=== PATIENT | male | born 1985 | race African-American/Black ===

== ENCOUNTER 2019-02-15 16:08 | Inpatient (IN) | payer OTHER ==
[2019-02-15 16:31] VITALS: BMI 23.9
--- NOTE | 2019-02-15 17:14 | HP ---
CIWA Score Nausea/Vomitin-Mild Nausea/No Vomiting (Patient is HIV+) Muscle Tremors: 4-Moderate,w/Arms Extend Anxiety: 3 Agitation: 0-Normal Activity Paroxysmal Sweats: 3 (Increased facial moisture) Orientation: 1-Uncertain about Date Tacttile Disturbances: 1-Very Mild Itch/Numbness Auditory Disturbances: 0-None Visual Disturbances: 0-None Headache: 3-Moderate CIWA-Ar Total Score: 16 - Admission Criteria OASAS Guidelines: Admission for Medically Managed Detox: Requires at least one of the followin. CIWA greater than 12 2. Seizures within the past 24 hours 3. Delirium tremens within the past 24 hours 4. Hallucinations within the past 24 hours 5. Acute intervention needed for co occurring medical disorder 6. Acute intervention needed for co occurring psychiatric disorder 7. Severe withdrawal that cannot be handled at a lower level of care (continued vomiting, continued diarrhea, abnormal vital signs) requiring intravenous medication and/or fluids 8. Patient presents the following: CIWA greater than 12 Admission Criteria Met: Admission criteria met Admission ROS [facility] Chief Complaint: Here today "to get detoxed and get into a rehab program". Allergies/Adverse Reactions: Allergies Allergy/AdvReac Type Severity Reaction Status Date / Time No Known Allergies Allergy Verified 02/15/19 16:22 History of Present Illness: 33 yo presents seeking alcohol detox exhibiting withdrawal symptoms. States cut wrist but was not trying to kill self and then decided to go to [facility]. Patient paperwork indicates admitted to [facility] from -. Patient states was admitted w/ diagnosis of drug-induced psychosis. Called [facility] ([phone]) who verified that a prescription is for [place] 150 mg - 3 cap (450 mg) PO BID. Spoke w/ CPAP unit at [facility] ([phone]) who confirms that patient is on [place] 450 mg Po BID; Informed that patient received Invega-Sustena 117 mg IM on 02/14 and next dose is in 1 month. F/u appt @ [facility] on 03/12/19. States started back drinking as soon as discharged. Denies thoughts of harming self or others. Denies seizures, blackouts, or overdoses. Longest sobriety 3 months in 2014. (Was exercising and eating right) Alcohol use began at age 17. Currently drinking 1 pint every other day. Drinks 2 - 16 oz beers daily. States gets shakes when stops drinking. Heroin use intermittent since age 33. States has only used 1-2 x in lifetime. States last used 2 sniffs heroin yesterday. Cocaine use began at age 23. Current use $20/day - nasal. Past use crystal meth began at age 32. Last used 1 month ago. Nicotine use began at age 17. Currently smokes almost 1 PPD. PMHx: HIV+ (Non-compliant w/ meds for over 1 month) PMHx: Insomnia. Recent drug-induced psychosis. Denies thoughts of harming self or others. Hx hallucination (seeing spots) r/t withdrawal. SHx: Homeless. Unemployed. Denies legal issues. Search Terms: Hernesto Garcia, 1985 Search Date: 02/15/2019 05:12:49 PM The Drug Utilization Report below displays all of the controlled substance prescriptions, if any, that your patient has filled in the last twelve months. The information displayed on this report is compiled from pharmacy submissions to the Department, and accurately reflects the information as submitted by the pharmacies. This report was requested by: Aileen Quintana | Reference #: [id number] There are no results for the search terms that you entered. Exam Limitations: No Limitations - Ebola screening Have you traveled outside of the country in the last 21 days: No (N) Have you had contact with anyone from an Ebola affected area: No Have you been sick,other than usual withdrawal symptoms: No Do you have a fever: No - Review of Systems Constitutional: Chills, Changes in sleep (Difficulty falling and staying asleep - take), Weight Stable EENT: reports: Blurred Vision Respiratory: reports: No Symptoms reported Cardiac: reports: Chest Tightness (Tightness w/ burning sensation unrelated to acitivity. Denies radiation. Denies cardiac history.) GI: reports: Constipated (Occ constipation. Last BM today), Nausea, Indigestion (Heart burn mid-sternal area - used to take pepcid.), Other (Gassy) : reports: No Symptoms Reported Musculoskeletal: reports: Back Pain (Intermittent back pain r/t poor sleeping conditions.) Integumentary: reports: No Symptoms Reported Neuro: reports: Headache (Frontal/temporal throbbing headache. "6"), Tremors Endocrine: reports: Increased Thirst Hematology: reports: Anemia (HIV+) Psychiatric: reports: Orientated x3 (Missed date by 2 days), Anxious, Depressed Patient History - PPD History Previous Implant?: Yes Documented Results: Negative w/o proof Implanted On Prior [facility] Admission?: No PPD to be Administered?: Yes - Smoking Cessation Smoking history: Current every day smoker Have you smoked in the past 12 months: Yes Aproximately how many cigarettes per day: 15 Hx Chewing Tobacco Use: No Initiated information on smoking cessation: Yes 'Breaking Loose' booklet given: 02/15/19 - Substance & Tx. History Hx Alcohol Use: Yes Hx Substance Use: Yes Substance Use Type: Alcohol, Cocaine, Heroin Hx Substance Use Treatment: Yes (detox, rehab) - Substances abused Cocaine Substance route: Inhalation Frequency: Daily Amount used: $20 Age of first use: 23 Date of last use: 02/14/19 Alcohol Substance route: Oral Frequency: Daily Amount used: vodka- 1pt pint Age of first use: 17 Date of last use: 02/15/19 Admission Physical Exam BHS - Vital Signs Vital Signs: Vital Signs - 24 hr 02/15/19 16:16 Temperature 98.9 F Pulse Rate 91 H Respiratory 18 Rate Blood Pressure 136/70 - Physical General Appearance: Yes: Nourished, Mild Distress, Tremorous, Sweating ( Increased facial moisture), Anxious HEENTM: Yes: EOMI, Hearing grossly Normal, Normocephalic, Normal Voice, ISATU ( Pupils = 5 mm), Pharynx Normal Respiratory: Yes: Lungs Clear (Pulse Ox = 98 %), Normal Breath Sounds, No Respiratory Distress Neck: Yes: No masses,lesions,Nodules, Supple Breast: Yes: Breast Exam Deferred Cardiology: Yes: Regular Rhythm, Regular Rate, S1, S2 Abdominal: Yes: Non Tender, Flat, Soft, Increased Bowel Sounds Genitourinary: Yes: Within Normal Limits Back: Yes: Normal Inspection Musculoskeletal: Yes: full range of Motion, Gait Steady Extremities: Yes: Normal Capillary Refill, Tremors (Gross tremors at rest), Other (Peripheral pulses+. No edema.) Neurological: Yes: radio television announcer II-XII NML intact, Alert, Motor Strength 5/5, Depressed Affect (Flat affect. Responds to questions in a slow monotone voice w/ minimal facial expression) Integumentary: Yes: Normal Color, Warm, Moist (Increased facial moisture), Other (Sutures (R) wrist area - dry and approximated.) Lymphatic: Yes: Within Normal Limits - Diagnostic (1) Alcohol dependence with withdrawal, uncomplicated Current Visit: Yes Status: Acute (2) Cocaine dependence, uncomplicated Current Visit: Yes Status: Chronic (3) Opioid abuse Current Visit: Yes Status: Chronic (4) HIV (human immunodeficiency virus infection) Current Visit: Yes Status: Chronic Qualifiers: HIV symptom status: unspecified Qualified Code(s): B20 - Human immunodeficiency virus [HIV] disease (5) Insomnia Current Visit: Yes Status: Acute Qualifiers: Insomnia type: unspecified Qualified Code(s): G47.00 - Insomnia, unspecified (6) Flat affect Current Visit: Yes Status: Acute (7) Nicotine dependence, unspecified, uncomplicated Current Visit: Yes Status: Chronic Qualifiers: Nicotine product type: cigarettes Qualified Code(s): F17.210 - Nicotine dependence, cigarettes, uncomplicated Cleared for Admission S - Detox or Rehab [facility] Level of Care: Medically Managed Detox Regimen/Protocol: Librium Claeared for Rehab Admission: No Breathalyzer - Breathalyzer Breathalyzer: 0 Urine Drug Screen - Test Device Lot number: [id number] Expiration date: 09/18/20 - Control Is test valid?: Yes - Results Drug screen NEGATIVE: No Urine drug screen results: JAHAIRA-Cocaine, MOP-Opiates, BZO-Benzodiazepines Inpatient Rehab Admission - Rehab Decision to Admit Inpatient rehab admission?: No
[2019-02-15] MEDS ORDERED: MAG HYDROX/AL HYDROX/SIMETH 30 ML UNIT-DOSE CUP PO PRN (18:09)
[2019-02-15] MEDS ORDERED: ACETAMINOPHEN 325 MG TABLET (FP) PO PRN (18:09)
[2019-02-15] MEDS ORDERED: chlordiazePOXIDE HCL 25 MG CAPSULE PO ONE (18:09)
[2019-02-15] MEDS ORDERED: MAGNESIUM CITRATE 300 ML BOTTLE PO PRN (18:09)
[2019-02-15] MEDS ORDERED: BISMUTH SUBSALICYLATE 524 MG/30 ML UD PO PRN (18:09)
[2019-02-15] MEDS ORDERED: IBUPROFEN 400 MG TABLET (FP) PO PRN (18:09)
[2019-02-15] MEDS ORDERED: MENTHOL/PHENOL 1 EACH UD MM PRN (18:09)
[2019-02-15] MEDS ORDERED: chlordiazePOXIDE HCL 25 MG CAPSULE PO SCH (21:00)
[2019-02-15] MEDS: chlordiazePOXIDE 5 MG CAPSULE PO SCH (22:58)
[2019-02-15] MEDS: THIAMINE HCL 100 MG TABLET (FP) PO SCH (22:58)
[2019-02-16] MEDS: chlordiazePOXIDE 5 MG CAPSULE PO SCH ×3 (06:06→22:20)
[2019-02-16 09:22] LABS: HEMOGLOBIN 12.8 GM/dL (11.7-16.9); MCH 30.9 pg (25.7-33.7); MCHC 32.9 g/dl (32.0-35.9); MEAN CELL VOLUME 94.1 fl (80-96); PLATELET COUNT 400 K/MM3 (134-434); RBC 4.14 M/mm3 (4.00-5.60); RDW 14.5 % (11.9-15.9); WHITE BLOOD COUNT 8.2 K/mm3 (4.0-10.0)
[2019-02-16 09:33] LABS: ALBUMIN 3.6 g/dl (3.4-5.0); BILIRUBIN,TOTAL 0.4 mg/dL (0.2-1); BLOOD UREA NITROGEN 10.3 mg/dL (7-18); CALCIUM 9.1 mg/dL (8.5-10.1); CREATININE 0.8 mg/dL (0.55-1.3); TOT PROT 7.4 g/dl (6.4-8.2)
[2019-02-16] MEDS: NICOTINE 21 MG/24 HOURS TOPICAL PATCH TD SCH (10:20)
[2019-02-16] MEDS: PRENATAL VITAMINS W/ FOLIC ACID TABLET (FP) PO SCH (10:20)
[2019-02-16] MEDS: METHOCARBAMOL 500 MG TABLET PO PRN ×2 (10:21→17:04)
--- NOTE | 2019-02-16 15:01 | PN ---
[facility] CIWA - CIWA Score Nausea/Vomitin-Mild Nausea/No Vomiting Muscle Tremors: 3 Anxiety: 4-Mod. Anxious/Guarded Agitation: 3 Paroxysmal Sweats: 3 Orientation: 0-Oriented Tacttile Disturbances: 0-None Auditory Disturbances: 0-None Visual Disturbances: 0-None Headache: 0-None Present CIWA-Ar Total Score: 14 S Progress Note (SOAP) Subjective: Patient asleep but easily aroused, refused to speak with display card writer Objective: 02/16/19 14:58 Last Vital Signs Temp Pulse Resp BP Pulse Ox 98.3 F 65 18 139/88 02/16/19 13:37 02/16/19 13:37 02/16/19 13:37 02/16/19 13:37 Elevated b/p noted: denies htn, not on medication Laboratory Tests 02/16/19 02/16/19 02/16/19 07:20 07:20 07:20 WBC 8.2 RBC 4.14 Hgb 12.8 Hct 39.0 MCV 94.1 MCH 30.9 MCHC 32.9 RDW 14.5 Plt Count 400 MPV 7.0 L Sodium 138 Potassium 4.0 Chloride 103 Carbon Dioxide 30 Anion Gap 5 L BUN 10.3 Creatinine 0.8 Est GFR (CKD-EPI)AfAm 136.99 Est GFR (CKD-EPI)NonAf 118.20 Random Glucose 106 Calcium 9.1 Total Bilirubin 0.4 AST 46 H ALT 56 Alkaline Phosphatase 65 Total Protein 7.4 Albumin 3.6 RPR Titer Nonreactive Labs reviewed: AST 46 (elevated) Assessment: 02/16/19 15:00 Withdrawal sxs Noted with elevated b/p and mild transaminitis Plan: Continue detox Encouraged PO water intake Elevated b/p: denies htn, not on medication, started on clonidine prn Mild transaminitis: most likely due to chronic alcoholism, monitor AST periodically, follow up with PCP for monitoring
--- NOTE | 2019-02-16 15:14 | EKG ---
Test Reason : Blood Pressure : / mmHG Vent. Rate : 088 BPM Atrial Rate : 088 BPM P-R Int : 142 ms QRS Dur : 084 ms QT Int : 374 ms P-R-T Axes : 039 068 054 degrees QTc Int : 452 ms NORMAL SINUS RHYTHM NORMAL ECG NO PREVIOUS ECGS AVAILABLE Confirmed by MD ALIVIA, NKECHI ([id number]) on 02/16/2019 3:14:17 PM Referred By: JOSE ANDRADE Confirmed By:NKECHI BNUCH MD
[2019-02-16] MEDS: NICOTINE POLACRILEX 2 MG GUM BUC PRN (18:41)
[2019-02-16] MEDS: chlordiazePOXIDE HCL 10 MG CAPSULE PO PRN (20:07)
[2019-02-16] MEDS: cloNIDine HCL 0.1 MG TABLET PO PRN (20:07)
[2019-02-16] MEDS: MELATONIN 5 MG TABLETS PO PRN (22:20)
[2019-02-16] MEDS: PANTOPRAZOLE 20 MG TABLET (FP) PO SCH (22:20)
[2019-02-16] MEDS: THIAMINE HCL 100 MG TABLET (FP) PO SCH (22:20)
[2019-02-17] MEDS: chlordiazePOXIDE HCL 10 MG CAPSULE PO SCH ×3 (05:55→21:57)
[2019-02-17] MEDS: NICOTINE 21 MG/24 HOURS TOPICAL PATCH TD SCH (10:05)
[2019-02-17] MEDS: PANTOPRAZOLE 20 MG TABLET (FP) PO SCH ×2 (10:05→22:07)
[2019-02-17] MEDS: PRENATAL VITAMINS W/ FOLIC ACID TABLET (FP) PO SCH (10:05)
[2019-02-17] MEDS: chlordiazePOXIDE HCL 10 MG CAPSULE PO PRN (10:06)
[2019-02-17] MEDS: ACETAMINOPHEN 325 MG TABLET (FP) PO PRN ×2 (10:08→16:29)
--- NOTE | 2019-02-17 10:47 | PN ---
S CIWA - CIWA Score Nausea/Vomitin-No Nausea/No Vomiting Muscle Tremors: 3 Anxiety: 2 Agitation: 2 Paroxysmal Sweats: 2 Orientation: 0-Oriented Tacttile Disturbances: 0-None Auditory Disturbances: 0-None Visual Disturbances: 0-None Headache: 0-None Present CIWA-Ar Total Score: 9 BHS Progress Note (SOAP) Subjective: sweats mild shakes anxiety body aches My sutures need to be removed Objective: 02/17/19 10:45 Vital Signs Temperature 98.8 F 02/17/19 09:11 Pulse Rate 89 02/17/19 09:11 Respiratory Rate 18 02/17/19 09:11 Blood Pressure 130/76 02/17/19 09:11 O2 Sat by Pulse Oximetry (%) Laboratory Tests 02/16/19 02/16/19 02/16/19 07:20 07:20 07:20 WBC 8.2 RBC 4.14 Hgb 12.8 Hct 39.0 MCV 94.1 MCH 30.9 MCHC 32.9 RDW 14.5 Plt Count 400 MPV 7.0 L Sodium 138 Potassium 4.0 Chloride 103 Carbon Dioxide 30 Anion Gap 5 L BUN 10.3 Creatinine 0.8 Est GFR (CKD-EPI)AfAm 136.99 Est GFR (CKD-EPI)NonAf 118.20 Random Glucose 106 Calcium 9.1 Total Bilirubin 0.4 AST 46 H ALT 56 Alkaline Phosphatase 65 Total Protein 7.4 Albumin 3.6 RPR Titer Nonreactive aaox3 ambulating no acute distress Assessment: 02/17/19 10:45 withdrawals sutures noted to right wrist. wound has healed and its scabbed. clear sutures moved and rest will dissolve. pt in agreement. vitamin A&D oint ordered Plan: continue detox vitamin a&d ointment increase fluids
[2019-02-17] MEDS: VITAMINS A AND D TOPICAL OINTMENT 60 GM TUBE TP SCH ×3 (12:09→23:25)
[2019-02-17] MEDS: NICOTINE POLACRILEX 2 MG GUM BUC PRN ×4 (12:09→21:21)
[2019-02-17] MEDS: MAGNESIUM HYDROX 2400MG/30ML ORAL SUSPENSION 30 ML CUP PO PRN ×2 (14:23→22:08)
[2019-02-17] MEDS: METHOCARBAMOL 500 MG TABLET PO PRN (16:30)
[2019-02-17] MEDS: cloNIDine HCL 0.1 MG TABLET PO PRN (18:09)
[2019-02-17] MEDS: MELATONIN 5 MG TABLETS PO PRN (22:07)
[2019-02-17] MEDS: THIAMINE HCL 100 MG TABLET (FP) PO SCH (22:07)
[2019-02-18] MEDS ORDERED: chlordiazePOXIDE 5 MG CAPSULE PO PRN
[2019-02-18] MEDS: chlordiazePOXIDE 5 MG CAPSULE PO SCH ×3 (05:55→22:02)
[2019-02-18] MEDS: VITAMINS A AND D TOPICAL OINTMENT 60 GM TUBE TP SCH ×3 (05:55→22:41)
[2019-02-18] MEDS: ACETAMINOPHEN 325 MG TABLET (FP) PO PRN ×2 (07:48→22:03)
[2019-02-18] MEDS: NICOTINE POLACRILEX 2 MG GUM BUC PRN ×2 (07:51→10:04)
--- NOTE | 2019-02-18 09:45 | PN ---
S CIWA - CIWA Score Nausea/Vomitin-No Nausea/No Vomiting Muscle Tremors: 2 Anxiety: 2 Agitation: 2 Paroxysmal Sweats: 2 Orientation: 0-Oriented Tacttile Disturbances: 0-None Auditory Disturbances: 0-None Visual Disturbances: 0-None Headache: 0-None Present CIWA-Ar Total Score: 8 BHS Progress Note (SOAP) Subjective: anxiety feeling better Objective: 02/18/19 09:46 Vital Signs Temperature 97.9 F 02/18/19 09:19 Pulse Rate 91 H 02/18/19 09:19 Respiratory Rate 16 02/18/19 09:19 Blood Pressure 128/86 02/18/19 09:19 O2 Sat by Pulse Oximetry (%) aaox3 ambulating no acute distress Assessment: 02/18/19 09:46 mild withdrawals Plan: d/c in am
[2019-02-18] MEDS: NICOTINE 21 MG/24 HOURS TOPICAL PATCH TD SCH (10:02)
[2019-02-18] MEDS: PRENATAL VITAMINS W/ FOLIC ACID TABLET (FP) PO SCH (10:02)
[2019-02-18] MEDS: PANTOPRAZOLE 20 MG TABLET (FP) PO SCH ×2 (10:04→22:02)
[2019-02-18] MEDS: MAGNESIUM HYDROX 2400MG/30ML ORAL SUSPENSION 30 ML CUP PO PRN (10:04)
[2019-02-18] MEDS: BACITRACIN 15 GM TUBE TOPICAL OINTMENT TP SCH (11:52)
[2019-02-18] MEDS: METHOCARBAMOL 500 MG TABLET PO PRN (12:43)
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
[2019-02-18] MEDS ORDERED: hydrOXYzine PAMOATE 50 MG CAPSULE (FP) PO PRN (13:35)
[2019-02-18] MEDS: risperiDONE 1 MG TABLET (FP) PO SCH ×2 (14:28→22:01)
[2019-02-18 14:37] LABS: PH,URINE 6.5 (5.0-8.0); URINE APPEARANCE CLEAR; URINE BILIRUBIN NEGATIVE (NEGATIVE); URINE COLOR YELLOW; URINE GLUCOSE (UA) NEGATIVE (NEGATIVE); URINE KETONE NEGATIVE (NEGATIVE); URINE LEUK ESTERASE NEGATIVE (NEGATIVE); URINE NITRITE NEGATIVE (NEGATIVE); URINE PROTEIN NEGATIVE (NEGATIVE); URINE UROBILINOGEN 0.2 mg/dL (0.2-1.0)
[2019-02-18] MEDS: LITHIUM CARBONATE 300 MG CAPSULE (FP) PO SCH ×2 (15:02→22:02)
[2019-02-18 21:19] VITALS: TEMP 98.1
[2019-02-18] MEDS: THIAMINE HCL 100 MG TABLET (FP) PO SCH (22:01)
[2019-02-19] MEDS: VITAMINS A AND D TOPICAL OINTMENT 60 GM TUBE TP SCH ×2 (00:10→06:38)
[2019-02-19] MEDS ORDERED: chlordiazePOXIDE 5 MG CAPSULE PO ONE (05:00)
[2019-02-19] MEDS: METHOCARBAMOL 500 MG TABLET PO PRN (06:28)
[2019-02-19] MEDS: LITHIUM CARBONATE 300 MG CAPSULE (FP) PO SCH (09:24)
[2019-02-19] MEDS: BACITRACIN 15 GM TUBE TOPICAL OINTMENT TP SCH (09:24)
[2019-02-19] MEDS: NICOTINE 21 MG/24 HOURS TOPICAL PATCH TD SCH (09:25)
[2019-02-19] MEDS: PRENATAL VITAMINS W/ FOLIC ACID TABLET (FP) PO SCH (09:25)
[2019-02-19] MEDS: PANTOPRAZOLE 20 MG TABLET (FP) PO SCH (09:25)
[2019-02-19] MEDS: risperiDONE 1 MG TABLET (FP) PO SCH (09:25)
--- NOTE | 2019-02-19 09:51 | DS ---
[facility] Detox Discharge Summary Admission Date: 02/15/19 Discharge Date: 02/19/19 - History Present History: Alcohol Dependence, Cocaine Dependence Additional Comments: Patient tolerated detox well. Patient to follow up with referral to [facility]. Patient to follow up with primary care provider upon discharge. - Physical Exam Results Vital Signs: Vital Signs Temperature 98.1 F 02/19/19 07:22 Pulse Rate 98 H 02/19/19 07:22 Respiratory Rate 18 02/19/19 07:22 Blood Pressure 115/68 02/19/19 07:22 O2 Sat by Pulse Oximetry (%) Pertinent Admission Physical Exam Findings: Patient is AOx3 no acute distress EENT WNL Full ROM, no gait disturbance no edema or erythema Vital Signs Temperature 98.1 F 02/19/19 10:06 Pulse Rate 100 H 02/19/19 10:06 Respiratory Rate 18 02/19/19 10:06 Blood Pressure 137/78 02/19/19 10:06 O2 Sat by Pulse Oximetry (%) Laboratory Last Values WBC 8.2 K/mm3 (4.0-10.0) 02/16/19 07:20 RBC 4.14 M/mm3 (4.00-5.60) 02/16/19 07:20 Hgb 12.8 GM/dL (11.7-16.9) 02/16/19 07:20 Hct 39.0 % (35.4-49) 02/16/19 07:20 MCV 94.1 fl (80-96) 02/16/19 07:20 MCH 30.9 pg (25.7-33.7) 02/16/19 07:20 MCHC 32.9 g/dl (32.0-35.9) 02/16/19 07:20 RDW 14.5 % (11.9-15.9) 02/16/19 07:20 Plt Count 400 K/MM3 (134-434) 02/16/19 07:20 MPV 7.0 fl (7.5-11.1) L 02/16/19 07:20 Sodium 138 mmol/L (136-145) 02/16/19 07:20 Potassium 4.0 mmol/L (3.5-5.1) 02/16/19 07:20 Chloride 103 mmol/L (98-107) 02/16/19 07:20 Carbon Dioxide 30 mmol/L (21-32) 02/16/19 07:20 Anion Gap 5 MMOL/L (8-16) L 02/16/19 07:20 BUN 10.3 mg/dL (7-18) 02/16/19 07:20 Creatinine 0.8 mg/dL (0.55-1.3) 02/16/19 07:20 Est GFR (CKD-EPI)AfAm 136.99 02/16/19 07:20 Est GFR (CKD-EPI)NonAf 118.20 02/16/19 07:20 Random Glucose 106 mg/dL (74-106) 02/16/19 07:20 Calcium 9.1 mg/dL (8.5-10.1) 02/16/19 07:20 Total Bilirubin 0.4 mg/dL (0.2-1) 02/16/19 07:20 AST 46 U/L (15-37) H 02/16/19 07:20 ALT 56 U/L (13-61) 02/16/19 07:20 Alkaline Phosphatase 65 U/L (45-117) 02/16/19 07:20 Total Protein 7.4 g/dl (6.4-8.2) 02/16/19 07:20 Albumin 3.6 g/dl (3.4-5.0) 02/16/19 07:20 Urine Color Yellow 02/18/19 09:50 Urine Appearance Clear 02/18/19 09:50 Urine pH 6.5 (5.0-8.0) 02/18/19 09:50 Ur Specific [place] 1.004 (1.010-1.035) L 02/18/19 09:50 Urine Protein Negative (NEGATIVE) 02/18/19 09:50 Urine Glucose (UA) Negative (NEGATIVE) 02/18/19 09:50 Urine Ketones Negative (NEGATIVE) 02/18/19 09:50 Urine Blood Negative (NEGATIVE) 02/18/19 09:50 Urine Nitrite Negative (NEGATIVE) 02/18/19 09:50 Urine Bilirubin Negative (NEGATIVE) 02/18/19 09:50 Urine Urobilinogen 0.2 mg/dL (0.2-1.0) 02/18/19 09:50 Ur Leukocyte Esterase Negative (NEGATIVE) 02/18/19 09:50 RPR Titer Nonreactive (NONREACTIVE) 02/16/19 07:20 - Treatment Hospital Course: Detox Protocol Followed, Detoxed Safely, Responded well, Discharged Condition Good, Rehab Referral Accepted Patient has Accepted a Rehab Referral to: [facility] - Medication Discharge Medications: Ambulatory Orders Abacavir/Dolutegravir/Lamivudi [Triumeq (Non-Formulary)] 1 each PO DAILY Rosalie Carbonate [Eskalith -] 450 mg PO BID 02/18/19 Paliperidone Palmitate [Invega Sustenna] 117 mg IM MONTHLY 02/18/19 - AMA Did Patient Leave Against Medical Advice: No
[2019-02-19 10:07] VITALS: BP 137/78; PULSE 100
== END 2019-02-19 13:23 | disposition other institution (70) | DRG 773 ==
LOC: YASAS 16:08 → Y6N 18:55
PROVIDERS: ADMIT Allergy & Immunology; ATTEND Allergy & Immunology
PROC: HZ2ZZZZ Detoxification Services for Substance Abuse Treatment (ICD-10-PCS; principal; 2019-02-15)
DX: F10.230 Alcohol dependence with withdrawal, uncomplicated (principal); F14.20 Cocaine dependence, uncomplicated; F11.10 Opioid abuse, uncomplicated; F17.210 Nicotine dependence, cigarettes, uncomplicated; F19.24 Other psychoactive substance dependence with psychoactive substance-induced mood disorder; F19.282 Other psychoactive substance dependence with psychoactive substance-induced sleep disorder; F31.9 Bipolar disorder, unspecified; G47.00 Insomnia, unspecified; Z21 Asymptomatic human immunodeficiency virus [HIV] infection status; R03.0 Elevated blood-pressure reading, without diagnosis of hypertension; R74.0 Nonspecific elevation of levels of transaminase and lactic acid dehydrogenase [LDH]; K21.9 Gastro-esophageal reflux disease without esophagitis; R45.86 Emotional lability; Z48.02 Encounter for removal of sutures; Z91.14 Patient's other noncompliance with medication regimen; Z62.810 Personal history of physical and sexual abuse in childhood; Z91.410 Personal history of adult physical and sexual abuse; Z56.0 Unemployment, unspecified; Z59.0 Homelessness
CPT/HCPCS: 36415; 80053; 81003; 85027; 86593; 93005; 93010; J0735; J2794

== ENCOUNTER 2019-02-19 13:32 | Inpatient (IN) | payer OTHER ==
--- NOTE | 2019-02-19 11:09 | HP ---
[facility] Rehab Assess/Revision - Admission History Admitted to Rehab from: [facility] [place] Date of Admission to Rehab: 02/19/2019 - Findings Detox History & Physical reviewed: Yes Concur with findings: Yes Inpatient Rehab Admission - Rehab Decision to Admit Inpatient rehab admission?: Yes - Initial Determination Are CD services needed?: Yes Free of communicable disease: Yes Not in need of hospitalization: Yes - Rehab Admission Criteria Previous failed treatment: Yes Poor recovery environment: Yes Comorbidities: Yes Lacks judgement: Yes Patient is meeting Inpatient Rehab admission criteria:: Yes
[~2019-02-19 13:32] MED LIST: LOPERAMIDE HCL 2 MG CAPSULE PO PRN; MAG HYDROX/AL HYDROX/SIMETH 30 ML UNIT-DOSE CUP PO PRN; MAGNESIUM CITRATE 300 ML BOTTLE PO PRN; MAGNESIUM HYDROX 2400MG/30ML ORAL SUSPENSION 30 ML CUP PO PRN; P-EPHED 60MG/TRIPROLIDI 2.5MG TABLET PO PRN; hydrOXYzine PAMOATE 25 MG CAPSULE (FP) PO PRN
[2019-02-19] MEDS ORDERED: hydrOXYzine PAMOATE 25 MG CAPSULE (FP) PO PRN (14:41)
--- NOTE | 2019-02-19 14:49 | PN ---
[facility] Progress Note Note: Psychiatric nurse practitioner note: Patient transferred to . Will continue medications ordered by Dr. Fung. Risperdal 1mg BID + [place] 300mg BID.
[2019-02-19] MEDS: LITHIUM CARBONATE 300 MG CAPSULE (FP) PO SCH (21:56)
[2019-02-19] MEDS: risperiDONE 1 MG TABLET PO SCH (21:56)
[2019-02-19] MEDS: THIAMINE HCL 100 MG TABLET (FP) PO SCH (21:57)
[2019-02-19] MEDS: MELATONIN 5 MG TABLETS PO PRN (21:58)
[2019-02-19] MEDS: ACETAMINOPHEN 325 MG TABLET (FP) PO PRN (21:59)
[2019-02-20] MEDS: LITHIUM CARBONATE 300 MG CAPSULE (FP) PO SCH (09:32)
[2019-02-20] MEDS: PRENATAL VITAMINS W/ FOLIC ACID TABLET (FP) PO SCH (09:32)
[2019-02-20] MEDS: risperiDONE 1 MG TABLET PO SCH ×2 (09:32→21:29)
[2019-02-20] MEDS: NICOTINE 14 MG/24 HOURS TOPICAL PATCH TD SCH (09:33)
[2019-02-20] MEDS: NICOTINE POLACRILEX 2 MG GUM BUC PRN ×2 (09:33→18:59)
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
--- NOTE | 2019-02-20 12:02 | PN ---
[facility] Progress Note Note: Pt is a 33 y/o male with a hx of ULICES-crystal meth,cocaine,alcohol use admitted yesterday to rehab from detox. pt currently c/o body aches/spasms/ anxiety and wants muscle relaxer. Pt reports he has primary care provider Dr. Chow(not sure but an [employer]ENIOR IND[employer]INE[employer]) on [address] [place] [address]. Reports saw him in November,. Pt reports PMHx of HIV+(was on Triumeq but has not taken for about a month ago) and PsychHx of Bipolar Disorder/Anxiety disorder. Vital Signs - 24 hr 02/19/19 02/20/19 02/20/19 13:55 00:30 03:30 Temperature 98.2 F Pulse Rate 108 H Respiratory 18 18 18 Rate Blood Pressure 141/76 02/20/19 07:21 Temperature 97.8 F Pulse Rate 93 H Respiratory 18 Rate Blood Pressure 127/83 A/P s/p detox protracted w/s Maintain safety Robaxin 500 mg po tid prn Vistaril prn as directed
[2019-02-20] MEDS: hydrOXYzine PAMOATE 50 MG CAPSULE (FP) PO PRN ×2 (12:30→21:30)
[2019-02-20] MEDS: METHOCARBAMOL 500 MG TABLET PO PRN (12:30)
[2019-02-20] MEDS: THIAMINE HCL 100 MG TABLET (FP) PO SCH (21:29)
[2019-02-20] MEDS: MELATONIN 5 MG TABLETS PO PRN (21:29)
[2019-02-21] MEDS: hydrOXYzine PAMOATE 50 MG CAPSULE (FP) PO PRN ×4 (00:55→21:43)
[2019-02-21] MEDS: risperiDONE 1 MG TABLET PO SCH ×2 (10:12→21:42)
[2019-02-21] MEDS: PRENATAL VITAMINS W/ FOLIC ACID TABLET (FP) PO SCH (10:12)
[2019-02-21] MEDS: NICOTINE 14 MG/24 HOURS TOPICAL PATCH TD SCH (10:12)
[2019-02-21] MEDS: METHOCARBAMOL 500 MG TABLET PO PRN ×2 (10:13→16:53)
[2019-02-21] MEDS: NICOTINE POLACRILEX 2 MG GUM BUC PRN (10:15)
[2019-02-21] MEDS: ACETAMINOPHEN 325 MG TABLET (FP) PO PRN (14:46)
[2019-02-21] MEDS: MELATONIN 5 MG TABLETS PO PRN (21:42)
[2019-02-21] MEDS: THIAMINE HCL 100 MG TABLET (FP) PO SCH (21:42)
[2019-02-22] MEDS: NICOTINE 14 MG/24 HOURS TOPICAL PATCH TD SCH (11:07)
[2019-02-22] MEDS: risperiDONE 1 MG TABLET PO SCH ×2 (11:07→21:37)
[2019-02-22] MEDS: PRENATAL VITAMINS W/ FOLIC ACID TABLET (FP) PO SCH (11:07)
[2019-02-22] MEDS: METHOCARBAMOL 500 MG TABLET PO PRN (17:38)
[2019-02-22] MEDS: hydrOXYzine PAMOATE 50 MG CAPSULE (FP) PO PRN (17:38)
[2019-02-22] MEDS: IBUPROFEN 400 MG TABLET (FP) PO PRN (20:08)
[2019-02-22] MEDS: MELATONIN 5 MG TABLETS PO PRN (21:36)
[2019-02-22] MEDS: THIAMINE HCL 100 MG TABLET (FP) PO SCH (21:37)
[2019-02-23] MEDS: METHOCARBAMOL 500 MG TABLET PO PRN (06:32)
[2019-02-23] MEDS: risperiDONE 1 MG TABLET PO SCH ×2 (10:22→21:33)
[2019-02-23] MEDS: PRENATAL VITAMINS W/ FOLIC ACID TABLET (FP) PO SCH (10:22)
[2019-02-23] MEDS: NICOTINE 14 MG/24 HOURS TOPICAL PATCH TD SCH (10:22)
[2019-02-23] MEDS: NICOTINE POLACRILEX 2 MG GUM BUC PRN (10:23)
[2019-02-23] MEDS: ACETAMINOPHEN 325 MG TABLET (FP) PO PRN ×2 (10:48→16:44)
[2019-02-23] MEDS: IBUPROFEN 400 MG TABLET (FP) PO PRN ×2 (14:33→21:33)
[2019-02-23] MEDS: THIAMINE HCL 100 MG TABLET (FP) PO SCH (21:33)
[2019-02-23] MEDS: MELATONIN 5 MG TABLETS PO PRN (21:33)
[2019-02-24] MEDS: ACETAMINOPHEN 325 MG TABLET (FP) PO PRN ×3 (08:49→22:10)
[2019-02-24] MEDS: METHOCARBAMOL 500 MG TABLET PO PRN (08:50)
[2019-02-24] MEDS: PRENATAL VITAMINS W/ FOLIC ACID TABLET (FP) PO SCH (10:32)
[2019-02-24] MEDS: risperiDONE 1 MG TABLET PO SCH ×2 (10:32→22:09)
[2019-02-24] MEDS: NICOTINE 14 MG/24 HOURS TOPICAL PATCH TD SCH (10:32)
[2019-02-24] MEDS: IBUPROFEN 400 MG TABLET (FP) PO PRN ×2 (10:33→18:35)
--- NOTE | 2019-02-24 14:43 | PN ---
[facility] Progress Note Note: Patient requested to see magazine writer to talk about starting Seroquel. He was told that Risperdal that he is currently on is doing the job that Seroquel would do. He responded that he wants to remain on Risperdal. He also talked about resuming [place] but he is unsure whether he wants to do that while in this program.
[2019-02-24] MEDS: THIAMINE HCL 100 MG TABLET (FP) PO SCH (22:09)
[2019-02-24] MEDS: MELATONIN 5 MG TABLETS PO PRN (22:09)
[2019-02-25] MEDS: METHOCARBAMOL 500 MG TABLET PO PRN ×2 (06:32→22:08)
[2019-02-25] MEDS: ACETAMINOPHEN 325 MG TABLET (FP) PO PRN ×2 (06:32→22:08)
[2019-02-25] MEDS: risperiDONE 1 MG TABLET PO SCH ×2 (10:38→22:06)
[2019-02-25] MEDS: PRENATAL VITAMINS W/ FOLIC ACID TABLET (FP) PO SCH (10:38)
[2019-02-25] MEDS: NICOTINE 14 MG/24 HOURS TOPICAL PATCH TD SCH (10:38)
[2019-02-25] MEDS: IBUPROFEN 400 MG TABLET (FP) PO PRN ×2 (10:40→16:56)
[2019-02-25] MEDS: NICOTINE POLACRILEX 2 MG GUM BUC PRN (10:42)
[2019-02-25] MEDS: hydrOXYzine PAMOATE 50 MG CAPSULE (FP) PO PRN (19:45)
[2019-02-25] MEDS: THIAMINE HCL 100 MG TABLET (FP) PO SCH (22:06)
[2019-02-25] MEDS: MELATONIN 5 MG TABLETS PO PRN (22:07)
[2019-02-26] MEDS: NICOTINE 14 MG/24 HOURS TOPICAL PATCH TD SCH (10:53)
[2019-02-26] MEDS: PRENATAL VITAMINS W/ FOLIC ACID TABLET (FP) PO SCH (10:53)
[2019-02-26] MEDS: risperiDONE 1 MG TABLET PO SCH ×2 (10:53→22:05)
[2019-02-26] MEDS: NICOTINE POLACRILEX 2 MG GUM BUC PRN (10:53)
[2019-02-26] MEDS: IBUPROFEN 400 MG TABLET (FP) PO PRN ×2 (10:54→17:31)
[2019-02-26] MEDS: METHOCARBAMOL 500 MG TABLET PO PRN ×2 (10:55→22:04)
[2019-02-26] MEDS: ACETAMINOPHEN 325 MG TABLET (FP) PO PRN (13:19)
--- NOTE | 2019-02-26 14:56 | PN ---
[facility] Progress Note Note: Pt requesting to have flu vaccination and pneumonia vaccination. Declined on admission when offered but now says he wants it. Vital Signs - 24 hr 02/26/19 02/26/19 02/26/19 00:30 03:30 06:43 Temperature 97.8 F Pulse Rate 99 H Respiratory 18 18 18 Rate Blood Pressure 138/89 Alert o x 3 nad oob ambulating with steady gait A/P Pt requesting vaccination Flu and pneumonia Vaccines as directed ordered
[2019-02-26] MEDS: hydrOXYzine PAMOATE 50 MG CAPSULE (FP) PO PRN (19:19)
[2019-02-26] MEDS: MELATONIN 5 MG TABLETS PO PRN (22:05)
[2019-02-26] MEDS: THIAMINE HCL 100 MG TABLET (FP) PO SCH (22:05)
[2019-02-27] MEDS ORDERED: PNEUMOCOCCAL 23 VACCINE 0.5 ML VIAL IM ONE (10:00)
[2019-02-27] MEDS: risperiDONE 1 MG TABLET PO SCH ×2 (10:45→22:05)
[2019-02-27] MEDS: PRENATAL VITAMINS W/ FOLIC ACID TABLET (FP) PO SCH (10:45)
[2019-02-27] MEDS: IBUPROFEN 400 MG TABLET (FP) PO PRN (10:45)
[2019-02-27] MEDS: NICOTINE 14 MG/24 HOURS TOPICAL PATCH TD SCH (10:45)
[2019-02-27] MEDS: METHOCARBAMOL 500 MG TABLET PO PRN ×2 (10:46→21:53)
[2019-02-27] MEDS: hydrOXYzine PAMOATE 50 MG CAPSULE (FP) PO PRN ×3 (10:53→21:55)
[2019-02-27] MEDS ORDERED: PNEUMOC 13-VAL CONJ-DIP CRM/PF 0.5 ML DISP.SYRIN IM ONE (12:00)
[2019-02-27] MEDS ORDERED: FLU VACCINE QUAD 60 MCG/0.5 ML (MDV 19-20) IM ONE (12:00)
[2019-02-27] MEDS: ACETAMINOPHEN 325 MG TABLET (FP) PO PRN (16:35)
[2019-02-27] MEDS: THIAMINE HCL 100 MG TABLET (FP) PO SCH (22:05)
[2019-02-28] MEDS: PRENATAL VITAMINS W/ FOLIC ACID TABLET (FP) PO SCH (11:00)
[2019-02-28] MEDS: risperiDONE 1 MG TABLET PO SCH ×2 (11:00→21:57)
[2019-02-28] MEDS: NICOTINE 14 MG/24 HOURS TOPICAL PATCH TD SCH (11:00)
[2019-02-28] MEDS: IBUPROFEN 400 MG TABLET (FP) PO PRN (11:01)
[2019-02-28] MEDS: hydrOXYzine PAMOATE 50 MG CAPSULE (FP) PO PRN ×3 (11:01→21:57)
[2019-02-28] MEDS: METHOCARBAMOL 500 MG TABLET PO PRN ×2 (11:01→21:57)
[2019-02-28] MEDS: ACETAMINOPHEN 325 MG TABLET (FP) PO PRN (21:57)
[2019-02-28] MEDS: THIAMINE HCL 100 MG TABLET (FP) PO SCH (21:57)
[2019-02-28] MEDS: MELATONIN 5 MG TABLETS PO PRN (21:58)
[2019-03-01] MEDS: risperiDONE 1 MG TABLET PO SCH ×2 (10:35→22:08)
[2019-03-01] MEDS: PRENATAL VITAMINS W/ FOLIC ACID TABLET (FP) PO SCH (10:35)
[2019-03-01] MEDS: NICOTINE 14 MG/24 HOURS TOPICAL PATCH TD SCH (10:36)
[2019-03-01] MEDS: hydrOXYzine PAMOATE 50 MG CAPSULE (FP) PO PRN ×3 (10:37→22:09)
[2019-03-01] MEDS: ACETAMINOPHEN 325 MG TABLET (FP) PO PRN (10:37)
[2019-03-01] MEDS: METHOCARBAMOL 500 MG TABLET PO PRN ×2 (10:37→22:10)
[2019-03-01] MEDS: IBUPROFEN 400 MG TABLET (FP) PO PRN ×2 (14:48→22:10)
[2019-03-01] MEDS: THIAMINE HCL 100 MG TABLET (FP) PO SCH (22:08)
[2019-03-02] MEDS: PRENATAL VITAMINS W/ FOLIC ACID TABLET (FP) PO SCH (10:27)
[2019-03-02] MEDS: hydrOXYzine PAMOATE 50 MG CAPSULE (FP) PO PRN ×3 (10:27→22:02)
[2019-03-02] MEDS: risperiDONE 1 MG TABLET PO SCH ×2 (10:28→22:01)
[2019-03-02] MEDS: METHOCARBAMOL 500 MG TABLET PO PRN ×2 (10:29→22:01)
[2019-03-02] MEDS: IBUPROFEN 400 MG TABLET (FP) PO PRN ×2 (10:29→22:01)
[2019-03-02] MEDS: NICOTINE 14 MG/24 HOURS TOPICAL PATCH TD SCH (10:30)
[2019-03-02] MEDS: MELATONIN 5 MG TABLETS PO PRN (22:01)
[2019-03-02] MEDS: THIAMINE HCL 100 MG TABLET (FP) PO SCH (22:01)
[2019-03-03] MEDS: NICOTINE 14 MG/24 HOURS TOPICAL PATCH TD SCH (11:31)
[2019-03-03] MEDS: risperiDONE 1 MG TABLET PO SCH ×2 (11:32→21:55)
[2019-03-03] MEDS: PRENATAL VITAMINS W/ FOLIC ACID TABLET (FP) PO SCH (11:32)
[2019-03-03] MEDS: hydrOXYzine PAMOATE 50 MG CAPSULE (FP) PO PRN ×2 (11:33→21:55)
[2019-03-03] MEDS: IBUPROFEN 400 MG TABLET (FP) PO PRN (11:33)
[2019-03-03] MEDS: METHOCARBAMOL 500 MG TABLET PO PRN ×2 (11:34→21:55)
[2019-03-03] MEDS: ACETAMINOPHEN 325 MG TABLET (FP) PO PRN (14:38)
[2019-03-03] MEDS: MENTHOL/PHENOL 1 EACH UD MM PRN (14:39)
[2019-03-03] MEDS: guaiFENesin 200 MG/10 ML 10 ML UNIT-DOSE CUPS PO PRN (15:05)
[2019-03-03] MEDS: THIAMINE HCL 100 MG TABLET (FP) PO SCH (21:55)
[2019-03-03] MEDS: MELATONIN 5 MG TABLETS PO PRN (21:56)
[2019-03-04] MEDS: risperiDONE 1 MG TABLET PO SCH ×2 (10:55→21:52)
[2019-03-04] MEDS: PRENATAL VITAMINS W/ FOLIC ACID TABLET (FP) PO SCH (10:55)
[2019-03-04] MEDS: NICOTINE 14 MG/24 HOURS TOPICAL PATCH TD SCH (10:55)
[2019-03-04] MEDS: IBUPROFEN 400 MG TABLET (FP) PO PRN (11:10)
[2019-03-04] MEDS: METHOCARBAMOL 500 MG TABLET PO PRN ×2 (11:13→21:54)
[2019-03-04] MEDS: NICOTINE POLACRILEX 2 MG GUM BUC PRN ×2 (11:14→17:54)
[2019-03-04] MEDS: MENTHOL/PHENOL 1 EACH UD MM PRN (11:14)
[2019-03-04] MEDS: guaiFENesin 200 MG/10 ML 10 ML UNIT-DOSE CUPS PO PRN ×2 (11:15→21:53)
[2019-03-04] MEDS: hydrOXYzine PAMOATE 50 MG CAPSULE (FP) PO PRN ×2 (17:53→21:54)
[2019-03-04] MEDS: ACETAMINOPHEN 325 MG TABLET (FP) PO PRN (17:53)
[2019-03-04] MEDS: THIAMINE HCL 100 MG TABLET (FP) PO SCH (21:52)
[2019-03-05] MEDS: PRENATAL VITAMINS W/ FOLIC ACID TABLET (FP) PO SCH (11:23)
[2019-03-05] MEDS: risperiDONE 1 MG TABLET PO SCH ×2 (11:23→22:02)
[2019-03-05] MEDS: NICOTINE 14 MG/24 HOURS TOPICAL PATCH TD SCH (11:23)
[2019-03-05] MEDS: guaiFENesin 200 MG/10 ML 10 ML UNIT-DOSE CUPS PO PRN (11:24)
[2019-03-05] MEDS: METHOCARBAMOL 500 MG TABLET PO PRN (11:24)
[2019-03-05] MEDS: hydrOXYzine PAMOATE 50 MG CAPSULE (FP) PO PRN ×3 (11:25→22:34)
[2019-03-05] MEDS: MELATONIN 5 MG TABLETS PO PRN (22:02)
[2019-03-05] MEDS: THIAMINE HCL 100 MG TABLET (FP) PO SCH (22:02)
[2019-03-06] MEDS: PRENATAL VITAMINS W/ FOLIC ACID TABLET (FP) PO SCH (10:17)
[2019-03-06] MEDS: risperiDONE 1 MG TABLET PO SCH ×2 (10:17→21:53)
[2019-03-06] MEDS: NICOTINE 14 MG/24 HOURS TOPICAL PATCH TD SCH (10:17)
[2019-03-06] MEDS: METHOCARBAMOL 500 MG TABLET PO PRN ×2 (10:17→21:51)
[2019-03-06] MEDS: guaiFENesin 200 MG/10 ML 10 ML UNIT-DOSE CUPS PO PRN (10:17)
[2019-03-06] MEDS: hydrOXYzine PAMOATE 50 MG CAPSULE (FP) PO PRN ×3 (10:18→21:50)
[2019-03-06] MEDS: IBUPROFEN 400 MG TABLET (FP) PO PRN (16:51)
[2019-03-06] MEDS: THIAMINE HCL 100 MG TABLET (FP) PO SCH (21:49)
[2019-03-06] MEDS: MELATONIN 5 MG TABLETS PO PRN (21:50)
[2019-03-07] MEDS: PRENATAL VITAMINS W/ FOLIC ACID TABLET (FP) PO SCH (10:47)
[2019-03-07] MEDS: hydrOXYzine PAMOATE 50 MG CAPSULE (FP) PO PRN ×3 (10:47→21:51)
[2019-03-07] MEDS: IBUPROFEN 400 MG TABLET (FP) PO PRN (10:47)
[2019-03-07] MEDS: NICOTINE 14 MG/24 HOURS TOPICAL PATCH TD SCH (10:47)
[2019-03-07] MEDS: METHOCARBAMOL 500 MG TABLET PO PRN ×2 (10:47→21:51)
[2019-03-07] MEDS: risperiDONE 1 MG TABLET PO SCH ×2 (10:47→21:51)
[2019-03-07] MEDS: NICOTINE POLACRILEX 2 MG GUM BUC PRN ×2 (10:47→13:07)
[2019-03-07] MEDS: guaiFENesin 200 MG/10 ML 10 ML UNIT-DOSE CUPS PO PRN ×2 (10:51→21:51)
[2019-03-07] MEDS: THIAMINE HCL 100 MG TABLET (FP) PO SCH (21:51)
[2019-03-07] MEDS: MELATONIN 5 MG TABLETS PO PRN (21:51)
[2019-03-08] MEDS: risperiDONE 1 MG TABLET PO SCH ×2 (10:33→21:41)
[2019-03-08] MEDS: PRENATAL VITAMINS W/ FOLIC ACID TABLET (FP) PO SCH (10:33)
[2019-03-08] MEDS: NICOTINE 14 MG/24 HOURS TOPICAL PATCH TD SCH (10:33)
[2019-03-08] MEDS: METHOCARBAMOL 500 MG TABLET PO PRN ×2 (10:35→21:41)
[2019-03-08] MEDS: guaiFENesin 200 MG/10 ML 10 ML UNIT-DOSE CUPS PO PRN (10:35)
[2019-03-08] MEDS: hydrOXYzine PAMOATE 50 MG CAPSULE (FP) PO PRN ×3 (10:35→21:41)
[2019-03-08] MEDS: IBUPROFEN 400 MG TABLET (FP) PO PRN (16:40)
[2019-03-08] MEDS: NICOTINE POLACRILEX 2 MG GUM BUC PRN (16:41)
[2019-03-08] MEDS: THIAMINE HCL 100 MG TABLET (FP) PO SCH (21:41)
[2019-03-08] MEDS: MELATONIN 5 MG TABLETS PO PRN (21:41)
[2019-03-09] MEDS: NICOTINE 14 MG/24 HOURS TOPICAL PATCH TD SCH (10:26)
[2019-03-09] MEDS: PRENATAL VITAMINS W/ FOLIC ACID TABLET (FP) PO SCH (10:27)
[2019-03-09] MEDS: risperiDONE 1 MG TABLET PO SCH ×2 (10:27→22:09)
[2019-03-09] MEDS: METHOCARBAMOL 500 MG TABLET PO PRN (10:28)
[2019-03-09] MEDS: guaiFENesin 200 MG/10 ML 10 ML UNIT-DOSE CUPS PO PRN (10:28)
[2019-03-09] MEDS: NICOTINE POLACRILEX 2 MG GUM BUC PRN (10:28)
[2019-03-09] MEDS: hydrOXYzine PAMOATE 50 MG CAPSULE (FP) PO PRN ×2 (10:29→17:22)
[2019-03-09] MEDS: IBUPROFEN 400 MG TABLET (FP) PO PRN (17:21)
[2019-03-09] MEDS: THIAMINE HCL 100 MG TABLET (FP) PO SCH (22:09)
[2019-03-09] MEDS: MELATONIN 5 MG TABLETS PO PRN (22:09)
[2019-03-10] MEDS: PRENATAL VITAMINS W/ FOLIC ACID TABLET (FP) PO SCH (10:38)
[2019-03-10] MEDS: NICOTINE 14 MG/24 HOURS TOPICAL PATCH TD SCH (10:38)
[2019-03-10] MEDS: risperiDONE 1 MG TABLET PO SCH ×2 (10:38→21:28)
[2019-03-10] MEDS: METHOCARBAMOL 500 MG TABLET PO PRN ×2 (10:40→21:27)
[2019-03-10] MEDS: MENTHOL/PHENOL 1 EACH UD MM PRN (10:40)
[2019-03-10] MEDS: guaiFENesin 200 MG/10 ML 10 ML UNIT-DOSE CUPS PO PRN (10:40)
[2019-03-10] MEDS: hydrOXYzine PAMOATE 50 MG CAPSULE (FP) PO PRN ×3 (10:40→21:28)
[2019-03-10] MEDS: NICOTINE POLACRILEX 2 MG GUM BUC PRN (15:50)
[2019-03-10] MEDS: THIAMINE HCL 100 MG TABLET (FP) PO SCH (21:27)
[2019-03-10] MEDS: MELATONIN 5 MG TABLETS PO PRN (21:28)
[2019-03-11 08:11] VITALS: PULSE 85
[2019-03-11] MEDS: METHOCARBAMOL 500 MG TABLET PO PRN (10:13)
[2019-03-11] MEDS: PRENATAL VITAMINS W/ FOLIC ACID TABLET (FP) PO SCH (10:13)
[2019-03-11] MEDS: hydrOXYzine PAMOATE 50 MG CAPSULE (FP) PO PRN ×3 (10:13→21:53)
[2019-03-11] MEDS: NICOTINE 14 MG/24 HOURS TOPICAL PATCH TD SCH (10:13)
[2019-03-11] MEDS: guaiFENesin 200 MG/10 ML 10 ML UNIT-DOSE CUPS PO PRN (10:13)
[2019-03-11] MEDS: risperiDONE 1 MG TABLET PO SCH ×2 (10:13→21:51)
[2019-03-11] MEDS: MENTHOL/PHENOL 1 EACH UD MM PRN (10:13)
[2019-03-11] MEDS: NICOTINE POLACRILEX 2 MG GUM BUC PRN ×2 (12:28→15:58)
[2019-03-11] MEDS: THIAMINE HCL 100 MG TABLET (FP) PO SCH (21:52)
[2019-03-11] MEDS: MELATONIN 5 MG TABLETS PO PRN (21:52)
[2019-03-12 07:44] VITALS: BP 122/71; TEMP 97.4
[2019-03-12] MEDS: guaiFENesin 200 MG/10 ML 10 ML UNIT-DOSE CUPS PO PRN (10:47)
[2019-03-12] MEDS: IBUPROFEN 400 MG TABLET (FP) PO PRN (10:47)
[2019-03-12] MEDS: METHOCARBAMOL 500 MG TABLET PO PRN ×2 (10:47→21:58)
[2019-03-12] MEDS: MENTHOL/PHENOL 1 EACH UD MM PRN (10:48)
[2019-03-12] MEDS: hydrOXYzine PAMOATE 50 MG CAPSULE (FP) PO PRN ×3 (10:48→21:57)
[2019-03-12] MEDS: PRENATAL VITAMINS W/ FOLIC ACID TABLET (FP) PO SCH (10:48)
[2019-03-12] MEDS: risperiDONE 1 MG TABLET PO SCH ×2 (10:48→21:57)
[2019-03-12] MEDS: NICOTINE 14 MG/24 HOURS TOPICAL PATCH TD SCH (10:48)
[2019-03-12] MEDS: NICOTINE POLACRILEX 2 MG GUM BUC PRN ×2 (12:36→15:56)
--- NOTE | 2019-03-12 13:13 | DS ---
[facility] Detox Discharge Summary Admission Date: 02/19/19 - History Present History: Alcohol Dependence, Cocaine Dependence - Physical Exam Results Vital Signs: Vital Signs Temperature 97.4 F L 03/12/19 07:41 Pulse Rate 85 03/12/19 07:41 Respiratory Rate 18 03/12/19 07:41 Blood Pressure 122/71 03/12/19 07:41 O2 Sat by Pulse Oximetry (%) - Medication Discharge Medications: Ambulatory Orders Abacavir/Dolutegravir/Lamivudi [Triumeq (Non-Formulary)] 1 each PO DAILY [place] Carbonate [Eskalith -] 450 mg PO BID 02/18/19 Paliperidone Palmitate [Invega Sustenna] 117 mg IM MONTHLY 02/18/19
--- NOTE | 2019-03-12 13:18 | DS ---
[facility] Rehab Discharge Summary - [facility] Rehab Discharge Summary Admission Date: 02/19/19 Discharge Date: 03/13/19 - History Present History: Alcohol dependence, Cocaine dependence Additional Comments: Pt is a 33 y/o male with a hx of ULICES-alcohol,cocaine and reports used heroin 1- 2 x in his life admitted to rehab and scheduled to discharge on 03/13/19. Pt requested to leave early due to transportation. Pertinent Past History: HIV+ Bipolar Disorder - Discharge Physical Exam Vital Signs: Vital Signs Temperature 97.4 F L 03/12/19 07:41 Pulse Rate 85 03/12/19 07:41 Respiratory Rate 18 03/12/19 07:41 Blood Pressure 122/71 03/12/19 07:41 O2 Sat by Pulse Oximetry (%) Alert o x 3,denies s/h/i nad oob ambulating with steady gait. cardiac:s1 s2,rrr lungs:cta,felicia. abdomen:+bs,soft,nt, nd. extremities/skin:no edema,skin intact. Pertinent Admission Physical Exam Findings: Status stable and unchanged from admission. - Treatment Discharge Condition: Discharge condition good Hospital Course: Rehabilitated safely and responded well. CD aftercare referral accepted pt was engaged in group and individual session participation while in rehab. - Medication Discharge Medications: Ambulatory Orders Abacavir/Dolutegravir/Lamivudi [Triumeq (Non-Formulary)] 1 each PO DAILY [place] Carbonate [Eskalith -] 450 mg PO BID 02/18/19 Paliperidone Palmitate [Invega Sustenna] 117 mg IM MONTHLY 02/18/19 Risperidone [Risperdal -] 1 mg PO BID #60 tablet 03/12/19 - Medication-Assisted Treatment (MAT) Medication-Assisted Treatment (MAT): No - Discharge Instructions Diet, activity, other medical instructions: Diet:Regular Activity: oob ad marcia Other medical instructions:follow up with CD aftercare with [facility] as scheduled. D/W pt to follow up with Primary Care Provider dr Blood for management of Comorbid conditions within 1 week after discharge. - Diagnosis (1) Alcohol dependence Status: Chronic Qualifiers: Substance use status: uncomplicated Qualified Code(s): F10.20 - Alcohol dependence, uncomplicated (2) Cocaine dependence Status: Chronic Qualifiers: Substance use status: uncomplicated Qualified Code(s): F14.20 - Cocaine dependence, uncomplicated (3) Nicotine dependence Status: Chronic Qualifiers: Nicotine product type: cigarettes Substance use status: uncomplicated Qualified Code(s): F17.210 - Nicotine dependence, cigarettes, uncomplicated (4) HIV (human immunodeficiency virus infection) Status: Chronic Qualifiers: HIV symptom status: unspecified Qualified Code(s): B20 - Human immunodeficiency virus [HIV] disease - Follow-up Referral Minutes to complete discharge: 20 - AMA Did Patient Leave Against Medical Advice: No
--- NOTE | 2019-03-12 14:11 | PN ---
[facility] Progress Note Note: Patient is scheduled for discharge tomorrow. Script for 30 days suply of Risperdal 1 mg/bid will be electronically transmitted to [facility] at [address] [place], [place] [id number]
[2019-03-12] MEDS: THIAMINE HCL 100 MG TABLET (FP) PO SCH (21:57)
[2019-03-12] MEDS: MELATONIN 5 MG TABLETS PO PRN (21:57)
--- NOTE | 2019-03-13 09:31 | PN ---
S Progress Note Note: Pt was discharged as schedule today at 7:30 A.M. Pt exited earlier and was not seen by this health science writer before leaving. Vital Signs - 24 hr 03/13/19 03/13/19 00:30 03:30 Respiratory 18 18 Rate Last V/S : BP:116/66, P- 88, 18, T- 97.3 Pt to follow up with aftercare as discussed and scheduled with his counselor.
== END 2019-03-13 06:55 | disposition home or self-care (01) | DRG 772 ==
LOC: YASAS 13:32 → Y5N 13:33
PROVIDERS: ADMIT Neuromusculoskeletal Medicine & OMM; ATTEND Neuromusculoskeletal Medicine & OMM
PROC: HZ42ZZZ Group Counseling for Substance Abuse Treatment, Cognitive-Behavioral (ICD-10-PCS; principal; 2019-02-19)
DX: F10.20 Alcohol dependence, uncomplicated (principal); F14.20 Cocaine dependence, uncomplicated; F17.210 Nicotine dependence, cigarettes, uncomplicated; F19.282 Other psychoactive substance dependence with psychoactive substance-induced sleep disorder; F19.24 Other psychoactive substance dependence with psychoactive substance-induced mood disorder; F31.9 Bipolar disorder, unspecified; Z21 Asymptomatic human immunodeficiency virus [HIV] infection status; Z59.0 Homelessness
CPT/HCPCS: 90670; G0008; G0009; J2794; Q2036